=== PATIENT | female | born 1990 ===

== ENCOUNTER 2021-06-22 07:40 | Inpatient (IN) ==
[2021-06-22] MEDS ORDERED: OXYTOCIN 30 UNITS/500 ML BAG IV PRN ×4 (08:19→16:46)
[2021-06-22 08:49] LABS: Hematocrit (blood only) 33.9 % (37-47); Hemoglobin 11.1 g/dL (12.0-16.0); Mean Corpuscular Hemoglobin 27.5 pg (25-34); Mean Corpuscular Hgb Conc 32.7 g/dL (32-36); Mean Corpuscular Volume 84.1 fL (80-100); Mean Platelet Volume 9.8 fL (7.4-10.4); Platelet Count 185 K/uL (130-400); RDW Coefficient of Variation 14.2 % (11.5-14.5); RDW Standard Deviation 43.7 fL (36.4-46.3); Red Blood Count 4.03 M/uL (4.2-5.4); White Blood Count 7.18 K/uL (4.8-10.8)
[2021-06-22] MEDS: LACTATED RINGER'S 1,000 ML IV PRN ×3 (08:50→18:04)
[2021-06-22] MEDS ORDERED: SODIUM CHLORIDE 0.9% INJ 10 ML VIAL ONE (12:09)
[2021-06-22] MEDS ORDERED: BUPIVACAINE 0.25% 30 ML VIAL ONE ×2 (12:09→17:45)
[2021-06-22] MEDS ORDERED: fentaNYL citrate 100 MCG/2 ML VIAL ONE (12:09)
[2021-06-22] MEDS ORDERED: ePHEDrine sulfate 50 MG/ML AMP ONE (12:09)
[2021-06-22] MEDS ORDERED: fentaNYL 2MCG/ML ROPIVACAINE 1.25MG/ML 100 ML BAG EPI ONE (12:10)
[2021-06-22] MEDS ORDERED: NALBUPHINE HCL INJ 10 MG/ML AMP IV PRN (13:02)
[2021-06-22] MEDS ORDERED: ONDANSETRON INJ 2 MG/ML 2 ML VIAL IV PRN (13:02)
[2021-06-22] MEDS ORDERED: diphenhydrAMINE 50 MG/ML VIAL IV PRN (13:02)
[2021-06-22] MEDS ORDERED: fentaNYL 2MCG/ML ROPIVACAINE 1.25MG/ML 100 ML BAG EPI PRN (13:02)
[2021-06-22] MEDS ORDERED: NALOXONE HCL 0.4 MG/1 ML VIAL/CARP IV PRN (13:02)
[2021-06-22] MEDS ORDERED: NALOXONE HCL 1 MG in SODIUM CHLORIDE 0.9% 1000ML 1,000 ML IV PRN (13:02)
[2021-06-22] MEDS ORDERED: ePHEDrine sulfate 50 MG/ML AMP IV PRN (13:02)
--- NOTE | 2021-06-22 13:02 | Anesthesiology Consultation ---
Date of Service June 22, 2021 Assessment & Plan Chart Review Chart Review: Patient NOT seen in Pre Admission Testing and Acceptable Risk for Labor Epidural Consults Requested none ASA ASA2 Proposed Anesthesia Anesthesia Type: Labor Epidural Risk / Benefits Reviewed With: PT / POA / Parent / Guardian, Accepts Plan and Informed Consent Obtained History Height/Weight Height: 5 ft 1 in Weight: 89.358 kg Allergies Allergy/AdvReac Type Severity Reaction Status Date / Time No Known Allergies Allergy Verified 06/21/21 15:23 Medications Home Medications Medication Instructions Recorded Confirmed Last Taken lamotrigine 200 mg tablet 200 mg PO DAILY #30 tab 10/21/19 06/22/21 06/21/21 22:30 quetiapine 200 mg tablet 200 mg PO DAILY tab 07/05/20 06/22/21 06/21/21 22:30 prenat.vits,jonathan,dah-zprv-zulqu 1 tab PO DAILY 11/01/20 06/22/21 06/21/21 22:30 ferrous sulfate 325 mg (65 mg 325 mg PO Q OTHER DAY 06/22/21 06/22/21 06/21/21 22:30 iron) tablet (iron) Active Medications Generic Name Dose Route Start Last Admin Trade Name Freq PRN Reason Stop Dose Admin Lactated Ringer's 1,000 mls @ 125 mls/hr 06/22/21 08:19 06/22/21 12:59 Lr IV 06/24/21 08:18 125 mls/hr .Q8H PRN Infusion L&D Protocol Protocol Oxytocin 30 units in 500 mls @ 10 mls/hr 06/22/21 08:51 06/22/21 11:36 Pitocin IV 06/24/21 08:50 0.72 units/hr .Q24H PRN 12 mls/hr Labor Induction/Augmentation Titration Protocol 0.6 UNITS/HR Past Medical History Medical History (Updated 06/21/21 @ 19:59 by Drea Gupta MD, FACOG) History of varicella as a child Exercise / Class Metabolic Activity II 4-5 Yardwork/Stairs/Walk up hill Past Family History Family History Grandmother (Maternal) Colorectal cancer Denies family history of Ovarian cancer Prostate cancer Myocardial infarction Breast cancer Past Surgical History Surgical History S/P wisdom tooth extraction Past Anesthesia History No Hx of Anesthesia Complications and No Family Hx of Anesthesia Complications History of PONV No Hx of PONV and No Hx of Motion Sickness Social History Smoking Status: Never smoker Hx Alcohol Use: No Hx Substance Use: No Physical Exam Vital Signs Last Vital Signs Temp 36.8 C 06/22/21 07:56 Pulse 95 H 06/22/21 12:59 Resp 20 06/22/21 07:56 BP 113/70 06/22/21 12:58 Pulse Ox 99 06/22/21 12:59 ENMT Mouth: no dentition abnormality Thyromental Distance: > or= 3.5 Finger Breadths Mallampati Class: II Neck normal visual inspection Respiratory normal respiratory effort Auscultation: lungs clear to auscultation bilaterally Cardiovascular Rate/Rhythm: regular rate and regular rhythm Psychiatric Orientation: alert Testing Laboratory Results 06/22/21 08:32
[2021-06-22] MEDS ORDERED: NURSING L&D Epidural Breakthrough Pain Update ONE (17:35)
--- NOTE | 2021-06-22 20:04 | Labor Progress Brief Note ---
Date of Service June 22, 2021 Reassessment of cervix she is still 4 to 5 cm very high the cervix is now increasingly thickened IUPC was placed and she has adequate contractions with the least 260 [place] units in the 10-minute EPOCH-R I have suggested the stage that likely the baby is not going to fit through any recommended the patient is agreeable we will give her a little more time heart rate is category 1 discussed the risks of section. The patient was counseled to the nature of the procedure including alternatives such as labor. Risks were discussed including bleeding infection injury to bowel bladder ureter vessels and even baby. Deep Vein thrombosis, pulmonary embolus discussed. Breakdown of incision reviewed. Deep vein thrombosis pulmonary embolus hernia and failure of the incision to heal were discussed Patient verbalized understanding of this and was given ample time to ask questions Assessment & Plan Admission and Anticipated Discharge Date Admission Date: June 22, 2021 Results & Data ([facility]) Vital Signs (Past 12 Hours) Vital Signs Temp Pulse Resp BP Pulse Ox 06/22/21 19:59 100 H 100 06/22/21 19:56 96 H 131/74 06/22/21 19:54 99 H 100 06/22/21 19:49 102 H 100 06/22/21 19:48 95 H 93 06/22/21 19:44 93 H 99 06/22/21 19:40 97 H 117/67 06/22/21 19:39 92 H 100 06/22/21 19:34 99 H 100 06/22/21 19:30 18 06/22/21 19:29 95 H 100 06/22/21 19:27 100 H 125/79 06/22/21 19:26 107 H 91 06/22/21 19:24 98 H 99 06/22/21 19:19 102 H 100 06/22/21 19:14 94 H 99 06/22/21 19:10 98.2 F 95 H 117/70 06/22/21 19:09 100 H 99 06/22/21 19:04 94 H 97 06/22/21 19:02 104 H 93 06/22/21 18:59 104 H 99 06/22/21 18:56 88 120/71 06/22/21 18:54 98 H 98 06/22/21 18:49 96 H 100 06/22/21 18:44 93 H 99 06/22/21 18:40 100 H 120/75 93 06/22/21 18:39 95 H 99 06/22/21 18:34 106 H 99 06/22/21 18:29 100 H 100 06/22/21 18:26 93 H 122/71 06/22/21 18:24 98 H 100 06/22/21 18:19 98 H 99 06/22/21 18:14 101 H 100 06/22/21 18:09 106 H 109/75 98 06/22/21 18:07 100 H 110/68 06/22/21 18:05 95 H 112/67 06/22/21 18:04 91 H 97 06/22/21 18:03 95 H 114/69 91 06/22/21 18:01 96 H 124/71 06/22/21 18:00 20 06/22/21 17:59 95 H 99 06/22/21 17:57 94 H 139/70 06/22/21 17:55 90 132/69 06/22/21 17:54 93 H 137/72 99 06/22/21 17:49 93 H 100 06/22/21 17:44 91 H 98 06/22/21 17:39 93 H 100 06/22/21 17:34 92 H 100 06/22/21 17:32 83 135/78 06/22/21 17:29 90 99 06/22/21 17:24 89 98 06/22/21 17:19 92 H 97 06/22/21 17:15 88 124/76 06/22/21 17:14 99 H 98 06/22/21 17:09 93 H 98 06/22/21 17:04 91 H 20 97 06/22/21 17:01 90 131/79 06/22/21 16:59 95 H 98 06/22/21 16:54 94 H 99 06/22/21 16:49 83 98 06/22/21 16:47 98 H 119/73 06/22/21 16:44 95 H 98 06/22/21 16:39 90 99 06/22/21 16:34 92 H 99 06/22/21 16:31 88 117/71 06/22/21 16:29 88 99 06/22/21 16:24 87 99 06/22/21 16:19 84 99 06/22/21 16:15 85 123/76 10/13/21 16:14 85 99 06/22/21 16:09 86 99 06/22/21 16:04 105 H 99 06/22/21 16:01 94 H 123/75 06/22/21 15:59 85 99 06/22/21 15:54 83 98 06/22/21 15:50 99 H 91 06/22/21 15:49 84 98 06/22/21 15:47 84 111/69 06/22/21 15:44 83 98 06/22/21 15:39 99 H 99 06/22/21 15:34 94 H 99 06/22/21 15:31 84 108/68 06/22/21 15:29 88 99 06/22/21 15:24 86 98 06/22/21 15:19 85 98 06/22/21 15:16 89 108/69 06/22/21 15:14 90 98 06/22/21 15:09 93 H 100 06/22/21 15:04 91 H 98 06/22/21 15:01 82 119/72 06/22/21 15:00 98.2 F 20 06/22/21 14:59 88 98 06/22/21 14:54 86 100 06/22/21 14:53 103 H 93 06/22/21 14:49 82 99 06/22/21 14:45 84 112/61 06/22/21 14:44 84 98 06/22/21 14:39 83 99 06/22/21 14:34 87 98 06/22/21 14:32 81 112/69 06/22/21 14:29 83 98 06/22/21 14:24 91 H 98 06/22/21 14:19 85 99 06/22/21 14:15 96 H 116/69 06/22/21 14:14 91 H 98 06/22/21 14:09 95 H 100 06/22/21 14:04 91 H 100 06/22/21 14:00 96 H 20 111/67 06/22/21 13:59 99 H 100 06/22/21 13:54 96 H 100 06/22/21 13:49 88 100 06/22/21 13:46 85 112/65 06/22/21 13:44 90 100 06/22/21 13:39 87 100 06/22/21 13:34 99 H 100 06/22/21 13:30 88 111/70 06/22/21 13:29 92 H 100 06/22/21 13:25 96 H 111/68 06/22/21 13:24 94 H 100 06/22/21 13:21 88 20 111/64 06/22/21 13:19 102 H 100 06/22/21 13:16 89 114/71 06/22/21 13:14 89 100 06/22/21 13:11 90 115/68 06/22/21 13:09 94 H 100 06/22/21 13:06 90 120/69 06/22/21 13:04 94 H 100 06/22/21 12:59 95 H 99 06/22/21 12:58 90 113/70 06/22/21 12:55 96 H 20 113/71 06/22/21 12:54 93 H 99 06/22/21 12:52 88 114/70 06/22/21 12:49 98 H 98 06/22/21 12:44 88 100 06/22/21 12:39 95 H 100 06/22/21 12:34 88 98 06/22/21 12:30 89 120/73 06/22/21 12:29 94 H 99 06/22/21 12:19 92 H 98 06/22/21 12:14 90 97 06/22/21 12:08 92 H 20 120/73 06/22/21 11:07 90 20 117/66 06/22/21 10:15 95 H 18 123/78 06/22/21 09:08 100 H 20 107/65 Coding Level of Care Code None
[2021-06-22] MEDS ORDERED: LACTATED RINGER'S 1,000 ML IV SCH (23:45)
[2021-06-23] MEDS ORDERED: ceFAZolin 2000MG 2,000 MG/15 ML SYR IV SCH
--- NOTE | 2021-06-23 00:01 | Labor Progress Brief Note ---
Date of Service June 23, 2021 Patient still 5 cm -2 station no progress adequate contractions have recommended the patient agrees full informed consent Assessment & Plan Admission and Anticipated Discharge Date Admission Date: June 22, 2021 Results & Data ([facility]) Vital Signs (Past 12 Hours) Vital Signs Temp Pulse Resp BP Pulse Ox 06/22/21 23:56 102 H 128/69 06/22/21 23:54 103 H 98 06/22/21 23:49 107 H 97 06/22/21 23:44 105 H 96 06/22/21 23:40 100 H 119/72 06/22/21 23:39 109 H 99 06/22/21 23:34 102 H 95 06/22/21 23:30 18 06/22/21 23:29 100 H 96 06/22/21 23:25 102 H 120/74 06/22/21 23:24 116 H 96 06/22/21 23:19 104 H 95 06/22/21 23:14 109 H 96 06/22/21 23:10 115 H 126/73 06/22/21 23:09 98.2 F 105 H 97 06/22/21 23:04 106 H 97 06/22/21 23:00 18 06/22/21 22:59 106 H 96 06/22/21 22:55 102 H 122/74 06/22/21 22:54 102 H 95 06/22/21 22:49 110 H 96 06/22/21 22:44 115 H 96 06/22/21 22:40 102 H 124/76 06/22/21 22:39 100 H 97 06/22/21 22:34 110 H 98 06/22/21 22:30 18 06/22/21 22:29 101 H 98 06/22/21 22:25 112 H 113/76 06/22/21 22:24 110 H 97 06/22/21 22:19 117 H 98 06/22/21 22:17 118 H 92 06/22/21 22:14 100 H 97 06/22/21 22:10 109 H 113/69 06/22/21 22:09 107 H 96 06/22/21 22:07 101 H 94 06/22/21 22:04 101 H 96 06/22/21 22:00 18 06/22/21 21:59 99 H 97 06/22/21 21:55 105 H 117/69 06/22/21 21:54 107 H 98 06/22/21 21:49 99 H 96 06/22/21 21:44 101 H 97 06/22/21 21:40 104 H 118/71 06/22/21 21:39 107 H 98 06/22/21 21:34 99 H 99 06/22/21 21:30 18 06/22/21 21:29 106 H 100 06/22/21 21:25 96 H 126/78 06/22/21 21:24 99 H 99 06/22/21 21:19 110 H 97 06/22/21 21:16 98.2 F 06/22/21 21:14 103 H 99 06/22/21 21:10 107 H 126/64 06/22/21 21:09 108 H 99 06/22/21 21:04 103 H 99 06/22/21 21:00 18 06/22/21 20:59 100 H 100 06/22/21 20:56 97 H 128/70 94 06/22/21 20:54 100 H 95 06/22/21 20:49 97 H 98 06/22/21 20:44 96 H 100 06/22/21 20:40 102 H 117/70 06/22/21 20:39 98 H 100 06/22/21 20:34 95 H 100 06/22/21 20:30 18 06/22/21 20:29 90 99 06/22/21 20:26 95 H 132/77 06/22/21 20:24 98 H 99 06/22/21 20:19 98 H 100 06/22/21 20:14 100 H 100 06/22/21 20:10 100 H 118/70 06/22/21 20:09 96 H 100 06/22/21 20:04 93 H 99 06/22/21 19:59 100 H 100 21 19:56 96 H 131/74 06/22/21 19:54 99 H 100 06/22/21 19:49 102 H 100 06/22/21 19:48 95 H 93 06/22/21 19:44 93 H 99 21 19:40 97 H 117/67 06/22/21 19:39 92 H 100 21 19:34 99 H 100 06/22/21 19:30 18 06/22/21 19:29 95 H 100 06/22/21 19:27 100 H 125/79 06/22/21 19:26 107 H 91 06/22/21 19:24 98 H 99 06/22/21 19:19 102 H 100 06/22/21 19:14 94 H 99 06/22/21 19:10 98.2 F 95 H 117/70 06/22/21 19:09 100 H 99 06/22/21 19:04 94 H 97 06/22/21 19:02 104 H 93 06/22/21 18:59 104 H 99 06/22/21 18:56 88 120/71 06/22/21 18:54 98 H 98 06/22/21 18:49 96 H 100 06/22/21 18:44 93 H 99 06/22/21 18:40 100 H 120/75 93 06/22/21 18:39 95 H 99 06/22/21 18:34 106 H 99 06/22/21 18:29 100 H 100 06/22/21 18:26 93 H 122/71 06/22/21 18:24 98 H 100 06/22/21 18:19 98 H 99 06/22/21 18:14 101 H 100 06/22/21 18:09 106 H 109/75 98 06/22/21 18:07 100 H 110/68 06/22/21 18:05 95 H 112/67 06/22/21 18:04 91 H 97 06/22/21 18:03 95 H 114/69 91 06/22/21 18:01 96 H 124/71 06/22/21 18:00 20 06/22/21 17:59 95 H 99 06/22/21 17:57 94 H 139/70 06/22/21 17:55 90 132/69 06/22/21 17:54 93 H 137/72 99 06/22/21 17:49 93 H 100 06/22/21 17:44 91 H 98 06/22/21 17:39 93 H 100 06/22/21 17:34 92 H 100 06/22/21 17:32 83 135/78 06/22/21 17:29 90 99 06/22/21 17:24 89 98 06/22/21 17:19 92 H 97 06/22/21 17:15 88 124/76 06/22/21 17:14 99 H 98 06/22/21 17:09 93 H 98 06/22/21 17:04 91 H 20 97 06/22/21 17:01 90 131/79 06/22/21 16:59 95 H 98 06/22/21 16:54 94 H 99 06/22/21 16:49 83 98 06/22/21 16:47 98 H 119/73 06/22/21 16:44 95 H 98 06/22/21 16:39 90 99 06/22/21 16:34 92 H 99 06/22/21 16:31 88 117/71 06/22/21 16:29 88 99 06/22/21 16:24 87 99 06/22/21 16:19 84 99 06/22/21 16:15 85 123/76 06/22/21 16:14 85 99 06/22/21 16:09 86 99 06/22/21 16:04 105 H 99 06/22/21 16:01 94 H 123/75 06/22/21 15:59 85 99 06/22/21 15:54 83 98 06/22/21 15:50 99 H 91 06/22/21 15:49 84 98 06/22/21 15:47 84 111/69 06/22/21 15:44 83 98 06/22/21 15:39 99 H 99 06/22/21 15:34 94 H 99 06/22/21 15:31 84 108/68 06/22/21 15:29 88 99 06/22/21 15:24 86 98 06/22/21 15:19 85 98 06/22/21 15:16 89 108/69 06/22/21 15:14 90 98 06/22/21 15:09 93 H 100 06/22/21 15:04 91 H 98 06/22/21 15:01 82 119/72 06/22/21 15:00 98.2 F 20 06/22/21 14:59 88 98 06/22/21 14:54 86 100 06/22/21 14:53 103 H 93 06/22/21 14:49 82 99 06/22/21 14:45 84 112/61 06/22/21 14:44 84 98 06/22/21 14:39 83 99 06/22/21 14:34 87 98 06/22/21 14:32 81 112/69 06/22/21 14:29 83 98 06/22/21 14:24 91 H 98 06/22/21 14:19 85 99 06/22/21 14:15 96 H 116/69 06/22/21 14:14 91 H 98 06/22/21 14:09 95 H 100 06/22/21 14:04 91 H 100 06/22/21 14:00 96 H 20 111/67 06/22/21 13:59 99 H 100 06/22/21 13:54 96 H 100 06/22/21 13:49 88 100 06/22/21 13:46 85 112/65 06/22/21 13:44 90 100 06/22/21 13:39 87 100 06/22/21 13:34 99 H 100 06/22/21 13:30 88 111/70 06/22/21 13:29 92 H 100 06/22/21 13:25 96 H 111/68 06/22/21 13:24 94 H 100 06/22/21 13:21 88 20 111/64 06/22/21 13:19 102 H 100 06/22/21 13:16 89 114/71 06/22/21 13:14 89 100 06/22/21 13:11 90 115/68 06/22/21 13:09 94 H 100 06/22/21 13:06 90 120/69 06/22/21 13:04 94 H 100 06/22/21 12:59 95 H 99 06/22/21 12:58 90 113/70 06/22/21 12:55 96 H 20 113/71 06/22/21 12:54 93 H 99 06/22/21 12:52 88 114/70 06/22/21 12:49 98 H 98 06/22/21 12:44 88 100 06/22/21 12:39 95 H 100 06/22/21 12:34 88 98 06/22/21 12:30 89 120/73 06/22/21 12:29 94 H 99 06/22/21 12:19 92 H 98 06/22/21 12:14 90 97 06/22/21 12:08 92 H 20 120/73 Coding Level of Care Code None
[2021-06-23] MEDS ORDERED: LIDOCAINE 2%/EPINEPHRINE 1:200,000 20 ML SDV ONE (00:28)
[2021-06-23] MEDS ORDERED: MoRPHine SULFATE PF 1 MG/ML 10 ML AMP/VIAL ONE (01:13)
[2021-06-23] MEDS ORDERED: OXYTOCIN 10 UNITS/ML VIAL ONE (01:21)
[2021-06-23] MEDS ORDERED: ePHEDrine sulfate 50 MG/ML SYR ONE (01:21)
[2021-06-23] MEDS ORDERED: PHENYLEPHRINE 100MCG/ML 5ML SYR ONE (01:21)
[2021-06-23] MEDS ORDERED: ePHEDrine sulfate 50 MG/ML AMP IV PRN (01:30)
[2021-06-23] MEDS ORDERED: NALOXONE HCL 1 MG in SODIUM CHLORIDE 0.9% 1000ML 1,000 ML IV PRN (01:30)
[2021-06-23] MEDS ORDERED: ONDANSETRON INJ 2 MG/ML 2 ML VIAL IV PRN ×2 (01:30→19:30)
[2021-06-23] MEDS ORDERED: NALBUPHINE HCL INJ 10 MG/ML AMP IV PRN (01:30)
[2021-06-23] MEDS ORDERED: DC INTRASPINAL MORPHINE SCH (01:30)
[2021-06-23] MEDS ORDERED: HYDROmorphone INJ 0.5 MG/0.5 ML SYR IV PRN (01:30)
[2021-06-23] MEDS ORDERED: KETOROLAC 30 MG/ML VIAL IV PRN ×2 (01:30→19:30)
[2021-06-23] MEDS ORDERED: diphenhydrAMINE 50 MG/ML VIAL IV PRN ×2 (01:30→19:30)
[2021-06-23] MEDS ORDERED: LACTATED RINGER'S 500 ML IV PRN (01:30)
[2021-06-23] MEDS ORDERED: PROMETHAZINE HCL 6.25 MG in SODIUM CHLORIDE 0.9% 50 ML IV PRN (01:30)
[2021-06-23] MEDS ORDERED: MoRPHine SULFATE PF 1 MG/ML 10 ML AMP/VIAL EPI ONE (01:30)
[2021-06-23] MEDS ORDERED: MoRPHine SULFATE 2 MG/ML CARP IV PRN (01:30)
[2021-06-23] MEDS ORDERED: NO NARCOTICS OR SEDATIVES SCH (01:30)
[2021-06-23] MEDS ORDERED: NALOXONE HCL 0.4 MG/1 ML VIAL/CARP IV PRN (01:30)
[2021-06-23] MEDS ORDERED: MEPERIDINE HCL 25 MG/ML CARP/VIAL IV PRN (01:30)
[2021-06-23] MEDS ORDERED: SODIUM CHLORIDE 0.9% 1000ML 1,000 ML IV SCH (01:30)
[2021-06-23] MEDS ORDERED: NALOXONE HCL 0.08 MG in SYRINGE 1.8 ML IV PRN (01:30)
--- NOTE | 2021-06-23 01:38 | Operative Report ---
PG Post Operative Report Pre & Post Diagnosis Operation Date: 06/22/21 23:50 <No data on this case meets the specified criteria> Operation Date: 06/23/21 00:30 Pre-Op Diagnosis: Term Failure to Progress Post-Op Diagnosis: Same as Preop I identified the patient and participated in the time-out.: Yes Procedure Operation Date: 06/22/21 23:50 <No data on this case meets the specified criteria> Operation Date: 06/23/21 00:30 Actual Procedures p Primary Section of a viable baby girl in OR#3 on 06/23/21 at [address] Rios. - Kelsi Rios MD, FACOG Surgeon eKlsi Rios MD, FACOG Orthopedic Nurse . Estimated Blood Loss 600 Findings Consistent with Post-Op Diagnosis see op note Specimens cord blood and gases Description of Procedure Regional anesthetic was given by anesthesia patient had a [place] catheter inserted by nursing patient was prepped and draped in supine position with a leftward tilt preoperative antibiotics were given timeout performed Pickups with teeth were used to test the skin site and it was found adequate for incision scalpel used to make a Pfannenstiel incision cutting down through subcutaneous fat through the fascia fascia was then dissected laterally with the curved Pierre's fascia was released superiorly and inferiorly from the rectus muscles with the curved Pierre scissors, rectus muscle split peritoneal cavity entered in a superior location. Opening enlarged to allow exposure bladder retractor placed Metzenbaums used to dissect away the bladder flap low segment transverse incision made on the uterus with scalpel entry was done bluntly with the owner/operator's finger hysterotomy incision extended with the owner/operator's finger in the usual fashion baby was attempted to be delivered, but required vacuum as would not fit through immediately 1 pull of the vacuum with no pop pop offs and the baby was easily delivered then by flexion of the head and pressure from the hotel assistant general manager on the abdomen mouth and then nares were suctioned baby was then delivered fully without difficulty without excessive force live vigorous cord clamped and cut cord gases obtained cord blood obtained placenta removed manually within ensured all placenta removed with a moist lap sponge uterus exteriorized IV Pitocin had been started by anesthesia and uterine tone improved. The uterus was closed in 2 layers first layer and 0 Monocryl running locked second layer 0 Monocryl nonlocked after generous irrigation and suction of the cul-de-sac and bladder flap regions hemostasis was excellent uterus was placed back in the peritoneal cavity and hemostasis was excellent rectus muscles were inspected and found to be dry fascia closed with 0 Vicryl subcutaneous fat closed with 3-0 Vicryl prior to this subcutaneous fat was irrigated skin closed with 4-0 subcuticular Monocryl incision Steri-Stripped urine was clear at the end of the procedure I attest to the content of the Intraoperative Record and any orders documented therein. Any exceptions are noted below. OB Procedure Charges 17554
[2021-06-23] MEDS ORDERED: KETOROLAC 30 MG/ML VIAL ONE (01:40)
[2021-06-23] MEDS ORDERED: QUEtiapine FUMARATE 200 MG TAB PO STA (01:41)
--- NOTE | 2021-06-23 01:58 | Anesthesia Procedure Note ---
Date of Service June 23, 2021 Anesthesia Post Epidural Note Vital Signs Vital Signs: Temp Pulse Resp BP Pulse Ox 36.8 C 109 H 18 132/93 100 06/22/21 23:09 06/23/21 01:54 06/23/21 00:30 06/23/21 01:49 06/23/21 01:54 Pain Intensity Bilateral Anterior Abdomen: Pain Intensity: 0 Notes Mental Status: alert / awake / arousable Nausea / Vomiting: adequately controlled Pain: adequately controlled Airway Patency, RR, SpO2: stable & adequate BP & HR: stable & adequate Hydration State: stable & adequate Neuraxial Anesthesia: was administered and sensory block is resolving Anesthetic Complications: no major complications apparent and Pt Satisfied with anesthetic care Epidural: Removed without complications and With tip intact
[2021-06-23] MEDS ORDERED: LACTATED RINGER'S 1,000 ML IV SCH (02:09)
[2021-06-23] MEDS ORDERED: BENZOCAINE 20% AER SPR 82.5 GM CAN EXT PRN (02:09)
[2021-06-23] MEDS ORDERED: SENNA 8.6 MG TAB PO PRN (02:09)
[2021-06-23] MEDS ORDERED: MAGNESIUM HYDROXIDE SUSP 30 ML UDC PO PRN (02:09)
[2021-06-23] MEDS ORDERED: SUPERCREAM 0.870% 15 GM JAR EXT PRN (02:09)
[2021-06-23] MEDS ORDERED: DIPHTHERIA/TETANUS/PERTUSSIS 0.5 ML SYR/VIAL IM ONE (02:09)
[2021-06-23] MEDS ORDERED: HYDROCORTISONE ACETATE 25 MG SUPP PR PRN (02:09)
[2021-06-23 02:24] LABS: Cord Venous Blood HCO3 22 mmol/L (18.4-26.8); Cord Venous Blood PCO2 45 mmHg (30.4-57.2); Cord Venous Blood PO2 24 mmHg (14.1-43.3); Cord Venous Blood pH 7.31 (7.20-7.44)
[2021-06-23 02:25] LABS: O2 Saturation Cord Venous Bld < 60.0 % (<68)
[2021-06-23 02:27] LABS: Base Excess Cord Arterial Bld -5.3 mEq/L (-9-1.8); CO2 Cord Arterial Blood 63 mmHg (39.1-73.5); HCO3 Cord Arterial Blood 24 mmol/L (19.7-28.5); PO2 Cord Arterial Blood 10 mmHg (4.1-31.7)
[2021-06-23 02:28] LABS: Oxygen Sat Cord Arterial Blood < 60.0 % (<60)
[2021-06-23] MEDS: OXYTOCIN 20 UNITS in LACTATED RINGER'S 1,000 ML IV SCH ×2 (03:24→11:12)
[2021-06-23] MEDS: lamoTRIgine 100 MG TAB PO SCH ×2 (04:30→21:21)
[2021-06-23] MEDS: lamoTRIgine 25 MG TAB PO SCH ×2 (04:31→21:20)
--- NOTE | 2021-06-23 07:06 | Obstetrical Progress Note ---
Date of Service <Van Venegas MD - Last Filed: 06/23/21 07:34> June 23, 2021 Assessment & Plan <Van Venegas MD - Last Filed: 06/23/21 07:34> (1) Encounter for care and examination after delivery: POD1: stable; improving post c/s -trial removal of catheter in AM -trial regular diet at breakfast -encourage continued ambulation -continue to observe today * likely increased analgesic requirement (prn percocet, tylenol, motrin) -reassess dispo readiness tomorrow <Kelsi Rios MD, FACOG - Last Filed: 06/23/21 08:06> (1) Encounter for care and examination after delivery: Subjective <Van Venegas MD - Last Filed: 06/23/21 07:34> Meme is a 30 y/o female who is POD 1 following for post term at 40+ WGA. Feeling well overall this morning. + abdominal cramping pain well managed on analgesics. Voiding into Aguilar cath. Has yet to eat but has been able to ambulate some. Reports some mild diffuse pruritus, likely from epidural. Currently breast and bottle feeding. Review of Systems Denies fever, chills, sweats Denies shortness of breath, difficulty breathing, chest pain, palpitations, chest pressure. Denies breast pain. Denies dysuria. Denies headache or changes in vision. Physical Exam <Van Venegas MD - Last Filed: 06/23/21 07:34> General: Alert, oriented. No acute distress. Cardiac: Regular rate and rhythm, no murmurs/rubs/gallops. Respiratory: Clear to auscultation bilaterally a/p, no wheezes/rales/rhonchi. No increased work of breathing. Symmetrical chest rise. No respiratory distress. Abdomen: Soft, nontender, nondistended. Bowel sounds present. Uterus: Uterine fundus firm, palpable at umbilicus. Surgical scar clean and healing well. Lower Extremities: No lower extremity edema or swelling. No deep calf pain. Felipe's negative bilaterally. Results & Data ([facility]) <Van Venegas MD - Last Filed: 06/23/21 07:34> Vital Signs (Past 12 Hours) Vital Signs Temp Pulse Pulse Resp BP BP Pulse Ox 06/23/21 06:00 18 93 06/23/21 05:00 36.8 C 112 H 18 118/70 95 06/23/21 04:09 103 H 95 06/23/21 04:08 102 H 94 06/23/21 04:04 98 H 94 06/23/21 04:02 105 H 94 06/23/21 04:00 36.6 C 108 H 108 H 18 121/73 121/73 96 06/23/21 03:59 111 H 95 06/23/21 03:56 107 H 94 06/23/21 03:54 97 H 94 06/23/21 03:51 98 H 94 06/23/21 03:50 97 H 18 118/74 06/23/21 03:49 97 H 93 06/23/21 03:44 100 H 95 06/23/21 03:40 98 H 119/68 06/23/21 03:39 101 H 96 06/23/21 03:34 100 H 95 06/23/21 03:32 99 H 94 06/23/21 03:30 99 H 111/67 06/23/21 03:29 104 H 97 06/23/21 03:27 96 H 119/67 94 06/23/21 03:25 106 H 81/50 L 06/23/21 03:24 102 H 95 06/23/21 03:20 18 06/23/21 03:19 101 H 96 06/23/21 03:15 100 H 94 06/23/21 03:14 94 H 95 06/23/21 03:09 94 H 95 06/23/21 03:04 97 H 97 06/23/21 02:59 97 H 100 06/23/21 02:54 105 H 98 06/23/21 02:50 36.6 C 96 H 18 115/71 06/23/21 02:49 94 H 99 06/23/21 02:44 95 H 97 06/23/21 02:40 99 H 18 111/63 06/23/21 02:39 96 H 98 06/23/21 02:34 99 H 100 06/23/21 02:30 94 H 18 114/71 06/23/21 02:29 96 H 99 06/23/21 02:24 101 H 99 06/23/21 02:20 101 H 18 111/70 92 06/23/21 02:19 100 H 95 06/23/21 02:14 99 H 100 06/23/21 02:10 107 H 18 121/66 06/23/21 02:09 105 H 100 06/23/21 02:06 108 H 126/68 06/23/21 02:04 110 H 100 06/23/21 02:03 106 H 90 06/23/21 02:00 18 06/23/21 01:59 115 H 100 06/23/21 01:54 109 H 100 06/23/21 01:49 109 H 132/93 100 06/23/21 00:48 18 06/23/21 00:46 114 H 116/67 06/23/21 00:44 102 H 124/73 99 06/23/21 00:40 102 H 126/79 06/23/21 00:39 104 H 98 06/23/21 00:34 100 H 97 06/23/21 00:30 18 06/23/21 00:29 104 H 98 06/23/21 00:25 107 H 114/63 06/23/21 00:24 105 H 99 06/23/21 00:19 110 H 100 06/23/21 00:14 107 H 99 06/23/21 00:11 100 H 127/69 06/23/21 00:09 105 H 100 06/23/21 00:04 104 H 100 06/23/21 00:00 18 06/22/21 23:59 106 H 98 06/22/21 23:56 102 H 128/69 06/22/21 23:54 103 H 98 06/22/21 23:49 107 H 97 06/22/21 23:44 105 H 96 06/22/21 23:40 100 H 119/72 06/22/21 23:39 109 H 99 06/22/21 23:34 102 H 95 06/22/21 23:30 18 06/22/21 23:29 100 H 96 06/22/21 23:25 102 H 120/74 06/22/21 23:24 116 H 96 06/22/21 23:19 104 H 95 06/22/21 23:14 109 H 96 06/22/21 23:10 115 H 126/73 06/22/21 23:09 36.8 C 105 H 97 06/22/21 23:04 106 H 97 06/22/21 23:00 18 06/22/21 22:59 106 H 96 06/22/21 22:55 102 H 122/74 06/22/21 22:54 102 H 95 06/22/21 22:49 110 H 96 06/22/21 22:44 115 H 96 06/22/21 22:40 102 H 124/76 06/22/21 22:39 100 H 97 06/22/21 22:34 110 H 98 06/22/21 22:30 18 06/22/21 22:29 101 H 98 06/22/21 22:25 112 H 113/76 06/22/21 22:24 110 H 97 06/22/21 22:19 117 H 98 06/22/21 22:17 118 H 92 06/22/21 22:14 100 H 97 06/22/21 22:10 109 H 113/69 06/22/21 22:09 107 H 96 06/22/21 22:07 101 H 94 06/22/21 22:04 101 H 96 06/22/21 22:00 18 06/22/21 21:59 99 H 97 06/22/21 21:55 105 H 117/69 06/22/21 21:54 107 H 98 06/22/21 21:49 99 H 96 06/22/21 21:44 101 H 97 06/22/21 21:40 104 H 118/71 06/22/21 21:39 107 H 98 06/22/21 21:34 99 H 99 06/22/21 21:30 18 06/22/21 21:29 106 H 100 06/22/21 21:25 96 H 126/78 06/22/21 21:24 99 H 99 06/22/21 21:19 110 H 97 06/22/21 21:16 36.8 C 06/22/21 21:14 103 H 99 06/22/21 21:10 107 H 126/64 06/22/21 21:09 108 H 99 06/22/21 21:04 103 H 99 06/22/21 21:00 18 06/22/21 20:59 100 H 100 06/22/21 20:56 97 H 128/70 94 06/22/21 20:54 100 H 95 06/22/21 20:49 97 H 98 06/22/21 20:44 96 H 100 06/22/21 20:40 102 H 117/70 06/22/21 20:39 98 H 100 06/22/21 20:34 95 H 100 06/22/21 20:30 18 06/22/21 20:29 90 99 06/22/21 20:26 95 H 132/77 06/22/21 20:24 98 H 99 06/22/21 20:19 98 H 100 06/22/21 20:14 100 H 100 06/22/21 20:10 100 H 118/70 06/22/21 20:09 96 H 100 06/22/21 20:04 93 H 99 06/22/21 19:59 100 H 100 06/22/21 19:56 96 H 131/74 06/22/21 19:54 99 H 100 06/22/21 19:49 102 H 100 06/22/21 19:48 95 H 93 06/22/21 19:44 93 H 99 06/22/21 19:40 97 H 117/67 06/22/21 19:39 92 H 100 06/22/21 19:34 99 H 100 06/22/21 19:30 18 06/22/21 19:29 95 H 100 06/22/21 19:27 100 H 125/79 06/22/21 19:26 107 H 91 06/22/21 19:24 98 H 99 06/22/21 19:19 102 H 100 06/22/21 19:14 94 H 99 06/22/21 19:10 36.8 C 95 H 117/70 06/22/21 19:09 100 H 99 06/22/21 19:04 94 H 97 06/22/21 19:02 104 H 93 <Kelsi Rios MD, FACOG - Last Filed: 06/23/21 08:06> Co-Signing Physician Notes Resident Physician Supervision Note: I was present with [Name of resident] during the history and exam. I discussed the case with the resident and agree with the findings and plan as documented in the note. Any exceptions or clarifications are listed here: [None] Documented By: Kelsi Rios MD, FACOG Resident Activity Tracking <Van Venegas MD - Last Filed: 06/23/21 07:34> Resident Involvement: Resident Care Provided Care Provided: OB Delivery
[2021-06-23] MEDS: DOCUSATE SODIUM 100 MG CAP PO SCH ×2 (08:08→21:18)
[2021-06-23] MEDS: SIMETHICONE 80 MG CHEW PO SCH ×4 (08:08→21:18)
[2021-06-23] MEDS: FERROUS SULFATE 325 MG TAB PO SCH (08:08)
[2021-06-23] MEDS: PRENATAL VITAMIN 1 TAB PO SCH (08:08)
[2021-06-23] MEDS ORDERED: NON-FORMULARY MEDICATION (Prenat.Vits,Cal,Min-Iron-Folic tablet) PO SCH (09:00)
[2021-06-23] MEDS ORDERED: diphenhydrAMINE Capsule 25 MG CAP PO PRN (19:30)
[2021-06-23] MEDS ORDERED: PROMETHAZINE HCL 25 MG in SODIUM CHLORIDE 0.9% 50 ML IV PRN (19:30)
[2021-06-23] MEDS ORDERED: MEPERIDINE HCL 50 MG/ML CARP IV PRN (19:30)
[2021-06-23] MEDS: IBUPROFEN 600 MG TAB PO PRN (21:19)
[2021-06-23] MEDS: oxyCODONE/ACETAMINOPHEN 5mg/325mg TAB PO PRN (21:19)
[2021-06-23] MEDS: QUEtiapine FUMARATE 200 MG TAB PO SCH (21:20)
[2021-06-24] MEDS: IBUPROFEN 600 MG TAB PO PRN ×5 (00:39→21:41)
[2021-06-24] MEDS: oxyCODONE/ACETAMINOPHEN 5mg/325mg TAB PO PRN ×5 (00:40→21:42)
--- NOTE | 2021-06-24 06:28 | Obstetrical Progress Note ---
Date of Service <Van Venegas MD - Last Filed: 06/24/21 07:15> June 24, 2021 Assessment & Plan <Van Venegas MD - Last Filed: 06/24/21 07:15> (1) Encounter for care and examination after delivery: POD1: stable; improving post c/s -voiding w/o difficulty -increased analgesic requirement (well-controlled on Percocet) -ambulate today with nursing support -observe today * ambulation, pain control -reassess d/c readiness tomorrow <Apple Fabian MD - Last Filed: 06/24/21 07:14> (1) Encounter for care and examination after delivery: Subjective <Van Venegas MD - Last Filed: 06/24/21 07:15> Post Naomi is a 30 y/o female who is POD 1 following at 40+ WGA. She reports feeling well overall this morning. + abdominal cramping pain well managed on analgesics (took Percocet this AM). Voiding well since Aguilar was removed yesterday. Tolerating meals overnight and able to ambulate with some difficulty. + passing gas but no bowel movement. Currently breast and bottle feeding. Review of Systems Denies fever, chills, sweats Denies shortness of breath, difficulty breathing, chest pain, palpitations, chest pressure. Denies breast pain. Denies dysuria. Denies headache or changes in vision. Physical Exam <Van Venegas MD - Last Filed: 06/24/21 07:15> General: Alert, oriented. No acute distress. Cardiac: Regular rate and rhythm, no murmurs/rubs/gallops. Respiratory: Clear to auscultation bilaterally a/p, no wheezes/rales/rhonchi. No increased work of breathing. Symmetrical chest rise. No respiratory distress. Abdomen: Soft, nontender, nondistended. Bowel sounds present. Uterus: Uterine fundus firm, palpable 1 cm below the umbilicus. Surgical scar clean and healing well. Lower Extremities: No lower extremity edema or swelling. No deep calf pain. Felipe's negative bilaterally. Results & Data ([facility]) <Van Venegas MD - Last Filed: 06/24/21 07:15> Vital Signs (Past 12 Hours) Vital Signs Temp Pulse Resp BP Pulse Ox 06/23/21 23:35 37.1 C 109 H 20 112/71 97 06/23/21 20:56 36.9 C 116 H 20 107/72 97 06/23/21 18:30 20 96 <Apple Fabian MD - Last Filed: 06/24/21 07:14> Co-Signing Physician Notes Resident Physician Supervision Note: I interviewed and examined the patient. Discussed with Dr. Venegas and agree with findings and plan as documented in the note. Any exceptions or clarifications are listed here: None Documented By: Apple Fabian MD, FACOG <Apple Fabian MD - Last Filed: 06/24/21 07:14> Resident Involvement: Resident Care Provided Care Provided: OB Delivery
[2021-06-24 07:18] LABS: Eosinophils # (auto) 0.08 K/uL (0-0.5); Eosinophils % (auto) 0.8 %; Hematocrit (blood only) 30.2 % (37-47); Hemoglobin 9.9 g/dL (12.0-16.0); Immature Granulocytes # (auto) 0.06 K/uL (0.00-0.02); Immature Granulocytes % (auto) 0.6 %; Lymphocytes # (auto) 2.24 K/uL (1.2-3.4); Lymphocytes % (auto) 21.9 %; Mean Corpuscular Hemoglobin 27.7 pg (25-34); Mean Corpuscular Hgb Conc 32.8 g/dL (32-36); Mean Corpuscular Volume 84.6 fL (80-100); Mean Platelet Volume 9.7 fL (7.4-10.4); Monocytes # (auto) 0.84 K/uL (0.11-0.59); Monocytes % (auto) 8.2 %; Neutrophils % (auto) 68.5 %; Platelet Count 188 K/uL (130-400); RDW Coefficient of Variation 14.5 % (11.5-14.5); RDW Standard Deviation 44.7 fL (36.4-46.3); Red Blood Count 3.57 M/uL (4.2-5.4); White Blood Count 10.22 K/uL (4.8-10.8)
[2021-06-24] MEDS: DOCUSATE SODIUM 100 MG CAP PO SCH ×2 (08:39→21:45)
[2021-06-24] MEDS: PRENATAL VITAMIN 1 TAB PO SCH (08:40)
[2021-06-24] MEDS: FERROUS SULFATE 325 MG TAB PO SCH (08:40)
[2021-06-24] MEDS: SIMETHICONE 80 MG CHEW PO SCH ×3 (08:41→21:44)
[2021-06-24] MEDS ORDERED: bisacodyL 5 MG TABEC PO SCH (20:00)
[2021-06-24] MEDS: lamoTRIgine 25 MG TAB PO SCH (21:45)
[2021-06-24] MEDS: lamoTRIgine 100 MG TAB PO SCH (21:46)
[2021-06-24] MEDS: QUEtiapine FUMARATE 200 MG TAB PO SCH (21:47)
[2021-06-25] MEDS ORDERED: bisacodyL 10 MG SUPP PR PRN (01:39)
[2021-06-25] MEDS: oxyCODONE/ACETAMINOPHEN 5mg/325mg TAB PO PRN ×3 (03:09→12:01)
[2021-06-25] MEDS: IBUPROFEN 600 MG TAB PO PRN ×3 (03:10→12:01)
[2021-06-25 06:17] LABS: Hematocrit (blood only) 29.1 % (37-47); Hemoglobin 9.4 g/dL (12.0-16.0)
--- NOTE | 2021-06-25 07:24 | Obstetrical Progress Note ---
Date of Service <Van Venegas MD - Last Filed: 06/25/21 07:53> June 25, 2021 Assessment & Plan <Van Venegas MD - Last Filed: 06/25/21 07:53> (1) Encounter for care and examination after delivery: POD1: stable; improving post c/s -voiding w/o difficulty -ambulating with some pain -stabilized analgesic requirement (continues to be well-controlled on Percocet) -anticipate d/c today, on short script of Percocet * pt counseled on at-home ibuprofen/acetaminophen pain management following completion of Percocet course * pt understood and was amenable -6-wk OB outpt f/u <Migdalia Sampson MD, FACOG - Last Filed: 06/25/21 07:55> (1) Encounter for care and examination after delivery: Subjective <Van Venegas MD - Last Filed: 06/25/21 07:53> Post Naomi is a 30 y/o female who is POD 2 following at 40 WGA. She reports feeling well overall this morning. ++ abdominal cramping pain well managed on analgesics (2 percocets yesterday evening, 1 today at 3 AM). Attributes pain to walking 5+ laps around L&D floor and large meal. Voiding +. Tolerating meals overnight and able to ambulate some. + passing gas but no bowel movement. She's had slowing of her bleeding this morning. Currently breast and bottle feeding. Review of Systems Denies fever, chills, sweats Denies shortness of breath, difficulty breathing, chest pain, palpitations, chest pressure. Denies breast pain. Denies dysuria. Denies headache or changes in vision. Physical Exam <Van Venegas MD - Last Filed: 06/25/21 07:53> General: Alert, oriented. No acute distress. Cardiac: Regular rate and rhythm, no murmurs/rubs/gallops. Respiratory: Clear to auscultation bilaterally a/p, no wheezes/rales/rhonchi. No increased work of breathing. Symmetrical chest rise. No respiratory distress. Abdomen: Soft, nontender, nondistended. Bowel sounds present. Uterus: Uterine fundus firm, palpable 1 cm below the umbilicus. Surgical scar clean and healing well. Lower Extremities: No lower extremity edema or swelling. No deep calf pain. Felipe's negative bilaterally. Results & Data ([facility]) <Van Venegas MD - Last Filed: 06/25/21 07:53> Vital Signs (Past 12 Hours) Vital Signs Temp Pulse Resp BP Pulse Ox 06/25/21 00:15 36.7 C 97 H 16 120/72 97 06/24/21 20:00 36.7 C 90 16 119/77 <Migdalia Sampson MD, FACOG - Last Filed: 06/25/21 07:55> Co-Signing Physician Notes Resident Physician Supervision Note: I interviewed and examined the patient. Discussed with Dr. Nicole and agree with findings and plan as documented in the note. Any exceptions or clarifications are listed here: Doing well. Meeting all d/c criteria. Desires d/c. D/c instructions reviewed. Documented By: Migdalia Sampson MD, FACOG Resident Activity Tracking <Van Venegas MD - Last Filed: 06/25/21 07:53> Resident Involvement: Resident Care Provided Care Provided: OB Delivery
[2021-06-25] MEDS: SIMETHICONE 80 MG CHEW PO SCH ×2 (08:00→08:09)
[2021-06-25] MEDS: FERROUS SULFATE 325 MG TAB PO SCH (08:09)
[2021-06-25] MEDS: DOCUSATE SODIUM 100 MG CAP PO SCH (08:09)
[2021-06-25] MEDS: PRENATAL VITAMIN 1 TAB PO SCH (08:09)
--- NOTE | 2021-06-28 12:38 | Discharge Summary ---
Date of Service June 28, 2021 Admission Exam (Per Admitting) Gastrointestinal (Abdomen) normal bowel sounds, soft, nontender, no hepatosplenomegaly (incision cdi) Discharge Data Consultations 06/22/21 08:19 Consult Anesthesiology Stat Procedures Performed Operation Date: 06/22/21 23:50 <No data on this case meets the specified criteria> Operation Date: 06/23/21 00:30 Actual Procedures p Primary Section of a viable baby girl in OR#3 on 06/23/21 at [address] Rios. - Kelsi Rios MD, [facility] Course (1) Encounter for care and examination after delivery: POD2: stable; improving post c/s -voiding w/o difficulty -ambulating with some pain -stabilized analgesic requirement (continues to be well-controlled on Percocet) -anticipate d/c today, on short script of Percocet * pt counseled on at-home ibuprofen/acetaminophen pain management following completion of Percocet course * pt understood and was amenable -6-wk OB outpt f/u Coding Level of Care Code None Diagnoses Encounter for care and examination after delivery Z39.2
== END 2021-06-25 13:02 | disposition home or self-care (01) | DRG 788 ==
LOC: 4S1 07:40 → 4S2 06-23 04:15
DX: Z37.0 Single live birth; Z3A.40 40 weeks gestation of pregnancy; O63.1 Prolonged second stage (of labor)